=== PATIENT | male | born 1990 | race Caucasian/White ===

== ENCOUNTER 2018-02-23 12:25 | Emergency (ER) | payer SELFPAY ==
[~2018-02-23] VITALS: Ht 182.9 cm; Wt 136.0 kg
[~2018-02-23 12:25] MED LIST: ZOLOFT100 MG PO
[2018-02-23] MEDS ORDERED: PERCOCET 7.51 TABLET PO (16:44)
[2018-02-23] MEDS ORDERED: SKELAXIN800 MG PO (16:44)
[2018-02-23] MEDS ORDERED: PREDNISONE10 M1 PO (16:44)
[2018-02-23 17:27] VITALS: BP 159/94
== END 2018-02-23 17:28 | disposition home or self-care (01) ==
LOC: EME 12:25
DX: M54.41 Lumbago with sciatica, right side (principal)
CPT/HCPCS: 72131; 81003; 99281; 99284; J2270; J2930; J3010